=== PATIENT | male | born 1955 | race Caucasian/White ===

== ENCOUNTER 2017-07-15 11:45 | Emergency (ER) | payer OTHER ==
[2017-07-15 11:50] VITALS: BP 148/85; PULSE 84; TEMP 98; BMI 27.6
--- NOTE | 2017-07-15 12:50 | PDOC ---
History of Present Illness - General Chief Complaint: Injury Stated Complaint: FALL Time Seen by Provider: 07/15/17 12:23 History Source: Patient Exam Limitations: No Limitations - History of Present Illness Initial Comments: 07/15/17 12:50 Patient came for evaluation of lip laceration. stumbled at work, Andrew to and fell forward onto edge of refrigerator. Patient incurred laceration to the lower aspect of his lip and chin and a contusion on the inner aspect of his gingival surface. States was not a through and through laceration, and has no dental injury. No other injury incurred. 07/15/17 12:50 Occurred: reports: just prior to arrival, this morning Severity: reports: mild Pain Location: reports: face Method of Injury: Yes: fall Modifying Factors: improves with: None Loss of Consciousness: no loss of consciousness Associated Symptoms (Fall): denies symptoms Past History - Travel Traveled outside of the country in the last 30 days: No Close contact w/someone who was outside of country & ill: No - Past Medical History Allergies/Adverse Reactions: Allergies Allergy/AdvReac Type Severity Reaction Status Date / Time No Known Allergies Allergy Verified 07/15/17 11:50 Home Medications: Ambulatory Orders Amox-Tr/K Cl [Augmentin 875Mg Tablet] 1 tab PO BID #10 tablet 07/15/17 Cardiac Disorders: Yes Diabetes: Yes - Psycho/Social/Smoking Cessation Hx Suicidal Ideation: No Smoking History: Never smoked Information on smoking cessation initiated: No Review of Systems - Review of Systems Able to Perform ROS?: Yes Is the patient limited Kiswahili proficient: Yes Constitutional: Yes: Symptoms Reported, See HPI, Malaise HEENTM: No: Symptoms Reported Respiratory: No: Symptoms reported Integumentary: Yes: Symptoms Reported, See HPI All Other Systems: Reviewed and Negative *Physical Exam - Vital Signs Last Vital Signs Temp Pulse Resp BP Pulse Ox 98 F 84 18 148/85 98 07/15/17 11:47 07/15/17 11:47 07/15/17 11:47 07/15/17 11:47 07/15/17 11:47 - Physical Exam General Appearance: Yes: Nourished, Appropriately Dressed, Apparent Distress, Mild Distress HEENT: positive: Normal ENT Inspection, TMs Normal, Pharynx Normal Neck: positive: Supple, Lymphadenopathy (R), Lymphadenopathy (L) Respiratory/Chest: positive: Lungs Clear, Normal Breath Sounds Cardiovascular: positive: Regular Rate Gastrointestinal/Abdominal: positive: Soft Extremity: positive: Normal Capillary Refill, Normal Inspection Integumentary: positive: Normal Color, Pale Neurologic: positive: felt finisher II-XII NML intact, Fully Oriented, Alert, Normal Mood/ Affect, Normal Response, Motor Strength 5/5 Progress Note - Progress Note Progress Note: Lip and chin laceration, repaired. We'll start on Augmentin as there is an oral lesion as well, however not through and through. *DC/Admit/Observation/Transfer Diagnosis at time of Disposition: Lip laceration Qualifiers: Encounter type: initial encounter Qualified Code(s): S01.511A - Laceration without foreign body of lip, initial encounter - Discharge Dispostion Disposition: HOME Condition at time of disposition: Stable Admit: No - Patient Instructions Printed Discharge Instructions: DI for Closed Head Injury, DI for Laceration Repair -- Complex Additional Instructions: Keep wound clean and dry Avoid strenuous activity/exercise to create a hot or sweaty environment until sutures are removed Avoid heavy chewing foods; eat soft things for the next few days including yogurt, ice cream, Rinse mouth after each meal with warm water Reapply bacitracin ointment 2 times a day until sutures are removed Return to emergency Department or private physician in 7 days for suture removal May use Tylenol or Motrin for pain relief Augmentin1 tablet every 12 hours for 5 days Return immediately to emergency department for redness, swelling, pain, or signs of infection - Post Discharge Activity Work/School Note: Back to Work
[2017-07-15] MEDS ORDERED: AMOX TR/POT CLAV 875MG/125MG TABLETS (FP) PO ONE (13:23)
[2017-07-15] MEDS ORDERED: AMOX TR/POT CLAV 875MG/125MG TABLETS (FP) ONE (13:29)
== END 2017-07-15 13:34 | disposition home or self-care (01) ==
LOC: JERFT 11:45
DX: S01.511A Laceration without foreign body of lip, initial encounter (principal); S01.81XA Laceration without foreign body of other part of head, initial encounter; W01.198A Fall on same level from slipping, tripping and stumbling with subsequent striking against other object, initial encounter; Y93.89 Activity, other specified; Y92.834 Zoological garden (Zoo) as the place of occurrence of the external cause; Y99.0 Civilian activity done for income or pay
CPT/HCPCS: 99282-25

== ENCOUNTER 2017-07-21 09:15 | Emergency (ER) | payer OTHER ==
[2017-07-21 09:22] VITALS: BP 141/81; PULSE 91; TEMP 98.2; BMI 27.4
--- NOTE | 2017-07-21 09:46 | PDOC ---
Suture Removal/Wound Check HPI - History of Present Illness Chief Complaint: Suture/Staple Removal (other) Stated Complaint: SUTURE REMOVAL Time Seen by Provider: 07/21/17 09:29 History Source: Yes: Patient Exam Limitations: Yes: No Limitations Treated at: [facility] Date of Last ED visit: 07/15/17 - Previous ED Treatment Type of procedure performed on last visit: Yes: Laceration Repair Tetanus Immunization: Yes: Up to Date (pt with sutures to the bottom lip) Past History - Past Medical History Allergies/Adverse Reactions: Allergies No Known Allergies Allergy (Verified 07/21/17 09:20) Home Medications: Ambulatory Orders Amox-Tr/K Cl [Augmentin 875Mg Tablet] 1 tab PO BID #10 tablet 07/15/17 General: Yes: no pertinent history - Social History Smoking Status: Never smoked Suture Removal/Wound Check PE - Physical Exam Laceration/Wound Check Symptoms: reports: None Comments: 07/21/17 10:09 lower lip with intact simple sutures, well healed no redness or drainage 07/21/17 10:12 Procedures - Additional Procedures Progress: 07/21/17 10:12 9 simple interrupted sutures removed from lower lip well healed CDI Medical Decision Making - Medical Decision Making 07/21/17 10:13 cc: suture removal to lower lip placed 6 days ago no complaints, well healed *DC/Admit/Observation/Transfer Diagnosis at time of Disposition: Visit for suture removal - Discharge Dispostion Disposition: HOME Condition at time of disposition: Good - Referrals Referrals: Baltazar Hankins MD [Primary Care Provider] - - Patient Instructions Additional Instructions: keep clean and dry you may shave the area in about 2-3 days apply sunscreen to the area to keep well protected from the sun - Post Discharge Activity Work/School Note: Back to Work
== END 2017-07-21 10:17 | disposition home or self-care (01) ==
LOC: JERFT 09:15
DX: Z48.02 Encounter for removal of sutures (principal)
CPT/HCPCS: 99281-25